=== PATIENT | male | born 1980 | race Caucasian/White ===

== ENCOUNTER 2023-01-08 18:56 | Emergency (ER) | payer MEDICAID ==
[~2023-01-08] VITALS: Ht 172.7 cm; Wt 67.4 kg
[2023-01-08 20:05] LABS: BASOPHILS # (AUTO) 0.1 X10'3 (0-0.2); BASOPHILS % (AUTO) 1.5 % (0-1); EOSINOPHILS # (AUTO) 0.1 X10'3 (0-0.9); EOSINOPHILS % (AUTO) 1.3 % (0-6); HEMATOCRIT 43.5 % (42.0-52.0); HEMOGLOBIN 14.6 g/dl (14.0-17.9); LYMPHOCYTES # (AUTO) 1.6 X10'3 (1.1-4.8); LYMPHOCYTES % (AUTO) 17.9 % (21-51); MEAN CORPUSCULAR HEMOGLOBIN 29.8 PG (27.0-31.0); MEAN CORPUSCULAR HGB CONC 33.6 g/dL (33.0-36.5); MEAN CORPUSCULAR VOLUME 88.7 FL (78-98); MEAN PLATELET VOLUME 7.3 FL (7.4-10.4); MONOCYTES # (AUTO) 0.8 X10'3 (0-0.9); MONOCYTES % (AUTO) 9.1 % (2-12); NEUTROPHILS # (AUTO) 6.3 X10'3 (1.8-7.7); NEUTROPHILS % (AUTO) 70.2 % (42-75); PLATELET COUNT 337 X10'3 (140-440); RED CELL DISTRIBUTION WIDTH 14.1 % (11.5-14.5)
[2023-01-08 20:29] LABS: ALANINE AMINOTRANSFERASE 38 U/L (12-78); ALBUMIN/GLOBULIN RATIO 1.9 (1.1-1.5); ALKALINE PHOSPHATASE 77 IU/L (46-116); ANION GAP 9 (8-16); ASPARTATE AMINO TRANSFERASE 46 U/L (10-37); BILIRUBIN,TOTAL 0.5 MG/DL (0.1-1.0); BLOOD UREA NITROGEN 8 MG/DL (7-18); BUN/CREATININE RATIO 10.1 (10.0-20.0); CALCIUM 9.5 MG/DL (8.5-10.1); CHLORIDE 107 MMOL/L (99-107); CREATININE 0.79 MG/DL (0.60-1.10); ETHANOL < 0.010 GM/DL (0.0-0.010); GLUCOSE 92 MG/DL (70-104); POTASSIUM 3.8 MMOL/L (3.5-5.1); SODIUM 146 MMOL/L (135-145); TOTAL CARBON DIOXIDE 30.5 MMOL/L (24-32); TOTAL PROTEIN 7.6 G/DL (6.4-8.2); eGFR > 90 ML/MIN
[2023-01-08 21:01] LABS: CLARITY,URINE CLEAR (Clear); COLOR,URINE YELLOW (Yellow); GLUCOSE, URINE NEGATIVE (Neg); KETONES,URINE NEGATIVE (Neg); LEUKOCYTE ESTERASE ,URINE NEGATIVE (Neg); NITRITES, URINE NEGATIVE (Neg); OCCULT BLOOD,URINE NEGATIVE (Neg); PROTEIN,URINE NEGATIVE (Neg)
[2023-01-08 21:08] LABS: UA COLLECTION TYPE CLN CATCH MIDSTREAM
[2023-01-08 21:13] LABS: URINE AMPHETAMINE SCREEN NEGATIVE (Neg); URINE BARBITUATE SCREEN NEGATIVE (Neg); URINE BENZODIAZEPINES SCREEN NEGATIVE (Neg); URINE CANNABINOID SCREEN POSITIVE (Neg); URINE COCAINE SCREEN NEGATIVE (Neg); URINE METHADONE SCREEN NEGATIVE (Neg); URINE OPIATE SCREEN NEGATIVE (Neg); URINE PHENCYCLIDINE SCREEN NEGATIVE (Neg)
[2023-01-08] MEDS ORDERED: normal saline 1000ML IV soln IVB ONE (21:35)
[2023-01-08] MEDS ORDERED: BUPR1FIL3 SL (22:15)
[2023-01-08] MEDS ORDERED: METH18TA23 PO (22:15)
[2023-01-08] MEDS ORDERED: OLANZapine 2.5MG tablet PO SCH (23:05)
[2023-01-08] MEDS ORDERED: Melatonin 3mg tablet PO SCH (23:05)
[2023-01-08] MEDS ORDERED: olanzapine 10mg tablet PO SCH (23:06)
[2023-01-09 00:10] VITALS: BP 130/68
--- NOTE | 2023-01-09 00:46 | NUR ---
Pt arrived to [facility] from main ER, pt is in bed asleep rr [id number]
--- NOTE | 2023-01-09 04:38 | NUR ---
Pt is awake lying in bed quietly.
--- NOTE | 2023-01-09 05:59 | NUR ---
Pt is asleep
--- NOTE | 2023-01-09 06:50 | NUR ---
Patient laying supine and appears to be sleeping. No distress observed. Continue to monitor.
--- NOTE | 2023-01-09 07:05 | NUR ---
PT ASLEEP, LAYING ON BACK. WILL CONT TO MONITOR.
--- NOTE | 2023-01-09 08:11 | NUR ---
Patient's breakfast tray at bedside. Patient continues to sleep. No distress observed. Continue to monitor.
--- NOTE | 2023-01-09 10:26 | NUR ---
[facility] JAIN, evaluating patient. at bedside. Continue to monitor.
--- NOTE | 2023-01-09 11:11 | NUR ---
Met with patient in regards to substance use and to see if patient was interested in resources for treatment options and patient declined.
--- NOTE | 2023-01-09 12:08 | NUR ---
Patient sleeping. Patient's lunch on bedside table. No distress observed. Continue to monitor.
== END 2023-01-09 12:57 | disposition home or self-care (01) ==
LOC: ER 18:57
DX: R45.851 Suicidal ideations (principal); Z20.822 Contact with and (suspected) exposure to COVID-19; F29 Unspecified psychosis not due to a substance or known physiological condition; R94.6 Abnormal results of thyroid function studies; Z88.0 Allergy status to penicillin
CPT/HCPCS: 36415; 80053; 80305; 80320; 81003; 84443; 85025; 87811; 96360; 99285; J7030